=== PATIENT | female | born 1965 | race Hispanic/Latino ===

== ENCOUNTER 2018-10-15 08:40 | Emergency (ER) | payer SELFPAY ==
[2018-10-15 09:03] LABS: #Eosinphils 0.7 thou/uL (0.0-0.7); #Lymphocytes 2.5 thou/uL (1.20-3.40); #Monocytes 0.3 thou/uL (0.11-0.59); #Neutrophils 3.5 thou/uL (1.40-6.50); %Basophils 0.5 % (0.0-1.0); %Eosinophils 9.4 % (0.0-10.0); %Lymphocytes 35.7 % (21.0-51.0); %Monocytes 4.6 % (0.0-10.0); %Neutrophils 49.8 % (42.0-75.0); Hemoglobin 12.9 g/dL (12.0-16.0); Mean Corpuscular HGB CONC 32.2 g/dL (32.0-36.0); Mean Corpuscular Hemoglobin 28.3 pg (27.0-31.0); Platelet Count 295 thou/uL (130-400); RBC Distribution Width 12.2 % (11.5-14.5); Red Blood Cell (RBC) Count 4.55 mill/uL (4.20-5.40)
[2018-10-15 09:19] LABS: ALT (SGPT) 26 U/L (8-55); AST (SGOT) 17 U/L (5-34); Albumin 3.9 g/dL (3.5-5.0); Alkaline Phosphatase 112 U/L (40-150); Anion Gap 11 mmol/L (10-20); BUN (Urea Nitrogen) 14 mg/dL (9.8-20.1); Bilirubin, Total 0.3 mg/dL (0.2-1.2); Calc. Creatinine Clearance 0 mL/min (70-130); Calcium 9.3 mg/dL (7.8-10.44); Carbon Dioxide 26 mmol/L (22-29); Chloride 107 mmol/L (98-107); Estimated GFR-MDRD 81; Globulin 2.8 g/dL (2.4-3.5); Glucose 125 mg/dL (70-105); Protein, Total 6.7 g/dL (6.0-8.3); Sodium 140 mmol/L (136-145)
--- NOTE | 2018-10-15 09:29 | RAD ---
CHEST 1 VIEW: Date: 10/15/18 HISTORY: Dizziness, nausea, shortness of breath, chest pain. FINDINGS: The heart size is normal. The lungs are expanded without focal areas of consolidation, pneumothoraces , or pleural effusions. IMPRESSION: No radiographic evidence of acute cardiopulmonary process. POS: [facility]
[2018-10-15] MEDS ORDERED: Ondansetron PF 4 MG/2 ML Vial ONE (09:37)
[2018-10-15] MEDS ORDERED: Acetaminophen 500 MG TAB ONE (09:37)
--- NOTE | 2018-10-15 09:55 | CT ---
CT BRAIN WITHOUT CONTRAST: HISTORY: Dizziness and headache. COMPARISON: 04/04/2009 FINDINGS: No evidence of acute infarct, hemorrhage, midline shift, or abnormal extraaxial fluid collections is seen. The ventricular size is normal, and the basilar cisterns are patent. The bony calvarium is in tact. There is mild mucosal disease in the paranasal sinuses. IMPRESSION: 1. No CT evidence of acute intracranial process. 2. Paranasal sinus disease. POS: [facility]
[2018-10-15 11:13] LABS: Bilirubin Negative (Negative); Blood, Urine Moderate (Negative); Clarity CLEAR (Clear); Glucose, Urine (Dipstick) Negative (Negative); Leukocyte Small (Negative); Nitrite Negative (Negative); Protein, Urine (Dipstick) Negative (Neg-Trace); Specific Gravity, Urine 1.018 (1.002-1.036); Urobilinogen 0.2 mg/dL (0.2-1.0)
[2018-10-15 11:19] LABS: Bacteria/HPF 1+ HPF (None Seen); Hyaline Casts/LPF 0-3 HYALINE CAST LPF (0-3 Hyaline); Squamous Epithelial 0-3 HPF (0-3)
[2018-10-15] MEDS ORDERED: Meclizine HCl 25 MG TAB ONE (11:48)
== END 2018-10-15 12:47 | disposition home or self-care (01) ==
LOC: ERS 08:40
DX: H81.399 Other peripheral vertigo, unspecified ear (principal); F32.9 Major depressive disorder, single episode, unspecified
CPT/HCPCS: 36415; 70450; 71045; 80053; 81003; 81015; 83880; 84484; 85025; 93005; 96361; 96374; J2405; J8499

== ENCOUNTER 2020-10-30 10:49 | Outpatient (CLI) | payer OTHER ==
[2020-10-30] MEDS ORDERED: Iopamidol-370 76% 500 ML 1 ML ONE (15:12)
== END 2020-10-30 10:50 | disposition home or self-care (01) ==
LOC: BICCT 10:49
PROVIDERS: ATTEND Urology
DX: R31.29 Other microscopic hematuria (principal); R39.11 Hesitancy of micturition; K76.0 Fatty (change of) liver, not elsewhere classified
CPT/HCPCS: 74178; Q9967